=== PATIENT | female | born 1975 | race Caucasian/White ===

== ENCOUNTER 2017-02-24 01:00 | Emergency (ER) | payer MEDICAID ==
[2017-02-24 02:41] VITALS: BP 131/74
== END 2017-02-24 02:41 | disposition home or self-care (01) ==
LOC: ED 01:00
DX: R51 Headache (principal)

== ENCOUNTER 2017-12-01 07:42 | Emergency (ER) | payer MEDICAID ==
[~2017-12-01] VITALS: Ht 149.9 cm; Wt 74.8 kg
[2017-12-01 07:47] VITALS: Ht 149.9 cm; Wt 74.8 kg
[2017-12-01 09:07] VITALS: BP 155/78
== END 2017-12-01 09:07 | disposition home or self-care (01) ==
LOC: ED 07:42
DX: R51 Headache (principal)
CPT/HCPCS: J1200; J1885

== ENCOUNTER 2018-04-13 15:12 | Emergency (ER) | payer MEDICAID ==
[~2018-04-13] VITALS: Ht 160 cm; Wt 78.0 kg
[2018-04-13 16:33] VITALS: BP 156/70
== END 2018-04-13 16:33 | disposition home or self-care (01) ==
LOC: ED 15:12
DX: R25.2 Cramp and spasm (principal)
CPT/HCPCS: J1885

== ENCOUNTER 2018-10-11 23:03 | Emergency (ER) | payer MEDICAID ==
[~2018-10-11] VITALS: Ht 149.9 cm; Wt 78.0 kg
[2018-10-11 23:16] VITALS: Ht 149.9 cm; Wt 78.0 kg
[2018-10-12 00:41] VITALS: BP 127/75
== END 2018-10-12 00:41 | disposition home or self-care (01) ==
LOC: ED 23:03
DX: S86.912A Strain of unspecified muscle(s) and tendon(s) at lower leg level, left leg, initial encounter (principal); S86.911A Strain of unspecified muscle(s) and tendon(s) at lower leg level, right leg, initial encounter; G44.209 Tension-type headache, unspecified, not intractable; X58.XXXA Exposure to other specified factors, initial encounter; Y93.89 Activity, other specified; Y92.89 Other specified places as the place of occurrence of the external cause; Y99.8 Other external cause status
CPT/HCPCS: J1885

== ENCOUNTER 2019-03-15 10:53 | Emergency (ER) | payer MEDICAID ==
[~2019-03-15] VITALS: Ht 152.4 cm; Wt 78.9 kg
[2019-03-15 10:56] VITALS: Ht 152.4 cm; Wt 78.9 kg
[2019-03-15 11:42] LABS: BASOPHIL % 0.4 % (0-2); PLATELET COUNT 301 x10^3mcL (130-400); RED CELL DISTRIBUTION WIDTH 12.7 % (11.5-14.5)
[2019-03-15 11:54] LABS: CALCIUM 8.9 mg/dL (8.5-10.1); CARBON DIOXIDE 28.4 mmol/L (21-32); CHLORIDE SERUM 105 mmol/L (98-107); CREATININE SERUM 0.6 mg/dL (0.6-1.0); GFR1 > 60 mL/min; GLUCOSE SERUM 155 mg/dL (74-106); POTASSIUM SERUM 3.3 mmol/L (3.5-5.1); SODIUM SERUM 143 mmol/L (136-145)
[2019-03-15 11:59] LABS: ALBUMIN 3.7 g/dL (3.4-5.0); ALKALINE PHOSPHATASE 90 U/L (46-116); ALT/SGPT 45 U/L (14-59); AST/SGOT 28 U/L (15-37); BILIRUBIN TOTAL 0.4 mg/dL (0.20-1.00)
[2019-03-15 12:07] LABS: microscopic required? YES; urine erythrocyte TRACE (NEGATIVE)
[2019-03-15 12:45] VITALS: BP 154/103
== END 2019-03-15 12:45 | disposition home or self-care (01) ==
LOC: ED 10:53
PROVIDERS: Emergency Medicine
DX: G51.0 Bell's palsy (principal); I10 Essential (primary) hypertension
CPT/HCPCS: J1885; J2765; J7030; J7512; Q0092

== ENCOUNTER 2019-03-23 16:09 | Emergency (ER) | payer MEDICAID ==
[~2019-03-23] VITALS: Ht 152.4 cm; Wt 78.0 kg
[2019-03-23 16:12] VITALS: BP 121/90; Ht 152.4 cm; Wt 78.0 kg
== END 2019-03-23 17:15 | disposition home or self-care (01) ==
LOC: ED 16:09
DX: H10.33 Unspecified acute conjunctivitis, bilateral (principal); G51.0 Bell's palsy; I10 Essential (primary) hypertension; Z98.890 Other specified postprocedural states
CPT/HCPCS: 82962

== ENCOUNTER 2019-04-09 11:54 | Emergency (ER) | payer MEDICAID ==
[~2019-04-09] VITALS: Ht 152.4 cm; Wt 78.9 kg
[2019-04-09 13:44] VITALS: BP 127/68
== END 2019-04-09 14:05 | disposition home or self-care (01) ==
LOC: ED 11:54
DX: H10.89 Other conjunctivitis (principal); G51.0 Bell's palsy; I10 Essential (primary) hypertension
CPT/HCPCS: J1885

== ENCOUNTER 2019-05-23 11:17 | Emergency (ER) | payer MEDICAID ==
[~2019-05-23] VITALS: Ht 152.4 cm; Wt 78.0 kg
[2019-05-23 11:26] VITALS: Ht 152.4 cm; Wt 78.0 kg
[2019-05-23 13:30] VITALS: BP 113/75
== END 2019-05-23 13:30 | disposition home or self-care (01) ==
LOC: ED 11:17
DX: G44.209 Tension-type headache, unspecified, not intractable (principal); I10 Essential (primary) hypertension; H57.89 Other specified disorders of eye and adnexa; Z98.890 Other specified postprocedural states
CPT/HCPCS: J1885

== ENCOUNTER 2019-06-15 11:40 | Emergency (ER) | payer MEDICAID ==
[~2019-06-15] VITALS: Ht 152.4 cm; Wt 78.0 kg
[2019-06-15 11:45] VITALS: BP 100/66; Ht 152.4 cm; Wt 78.0 kg
== END 2019-06-15 12:10 | disposition home or self-care (01) ==
LOC: ED 11:40
DX: M79.672 Pain in left foot (principal); M79.671 Pain in right foot; I10 Essential (primary) hypertension; Z98.890 Other specified postprocedural states